=== PATIENT | male | born 1995 | race Caucasian/White ===

== ENCOUNTER 2017-09-06 19:41 | Emergency (ER) | payer SELFPAY ==
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
== END 2017-09-06 20:29 | disposition home or self-care (01) ==
LOC: DL.ED 19:41
DX: S00.83XA Contusion of other part of head, initial encounter (principal); Y04.0XXA Assault by unarmed brawl or fight, initial encounter
CPT/HCPCS: 99283